=== PATIENT | female | born 1995 | race Hispanic/Latino ===

== ENCOUNTER 2019-11-17 21:41 | Emergency (ER) | payer SELFPAY ==
[~2019-11-17] VITALS: Ht 160 cm; Wt 90.7 kg
--- NOTE | 2019-11-17 22:15 | Emergency Department Note ---
History of Present Illnes History of Present Illness Chief Complaint: Hypertension History of Present Illness This is a 24 year old female PRESENTS WITH C/O ELEVATED BLOOD PRESSURE, STATES WAS AT WORK TODAY BEGAN TO HAVE HEADACHE AND WAS LIGHT HEADED, [facility] DOCTOR DID EKG AND CHECKED BLOOD PRESSURE AND HER BP WAS"VERY HIGH" WAS STARTED ON [place]. STATES HER HEART RATE WAS A LITTLE ELEVATED WELL, STATES CAME IN TONIGHT BECAUSE BP AT HOME WAS 148/114.. 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 Arrival Mode: Car Onset (how long ago): hour(s) (12) Location: HEAD Quality: HEADACHE, LIGHTHEADED Radiation: Reports non-radiation Severity: moderate Onset quality: sudden Duration (how long): hour(s) (12) Timing of current episode: intermittent Progression: waxing and waning Chronicity: new Context: Denies recent illness Relieving factors: none Exacerbating factors: none Associated symptoms: Reports denies other symptoms Treatments prior to arrival: other (STARTED ON [place] TODAY) Past Medical/Family History Physician Review I have reviewed the patient's past medical and family history. Any updates have been documented here. Past Medical History Recent Fever: No Clinical Suspicion of Infectio: No New/Unexplained Change in Ment: No Past Medical History: Hypertension Past Surgical History: None Social History Smoking Cessation: Never Smoker Alcohol Use: None Any Illegal Drug Use: No Physically hurt or threatened: No Family History Other family history HTN Review of Systems Review of Systems Constitutional: Reports no symptoms EENTM: Reports no symptoms Cardiovascular: Reports no symptoms Respiratory: Reports no symptoms Gastrointestinal: Reports no symptoms Genitourinary: Reports no symptoms Musculoskeletal: Reports no symptoms Integumentary: Reports no symptoms Neurological: Reports as per HPI Psychological: Reports no symptoms Endocrine: Reports no symptoms Hematological/Lymphatic: Reports no symptoms Physical Exam Related Data Allergies: Coded Allergies: No Known Allergies (Unverified , 11/17/19) Triage Vital Signs Vital Signs Date Time Temp Pulse Resp B/P (MAP) Pulse Ox O2 Delivery O2 Flow Rate FiO2 11/17/19 21:50 99.5 117 18 148/106 100 Room Air Vital signs reviewed: Yes Physical Exam CONSTITUTIONAL Constitutional: Present well-developed, Present well-nourished HENT HENT: Present normocephalic, Present atraumatic, Present oropharynx clear/moist, Present nose normal HENT L/R: Present left ext ear normal, Present right ext ear normal EYES Eyes: Reports PERRL, Reports conjunctivae normal NECK Neck: Present ROM normal PULMONARY Pulmonary: Present effort normal, Present breath sounds normal CARDIOVASCULAR Cardiovascular: Present regular rhythm, Present heart sounds normal, Present capillary refill normal, Present tachycardia (104) GASTROINTESTINAL Abdominal: Present soft, Present nontender, Present bowel sounds normal GENITOURINARY Genitourinary: Present exam deferred SKIN Skin: Present warm, Present dry MUSCULOSKELETAL Musculoskeletal: Present ROM normal NEUROLOGICAL Neurological: Present alert, Present oriented x 3, Present no gross motor or sensory deficits PSYCHOLOGICAL Psychological: Present mood/affect normal, Present judgement normal Results Laboratory Laboratory Laboratory Tests Test 11/17/19 22:03 Urine Color Yellow (YELLOW) Urine Clarity Clear (CLEAR) Urine pH 7.5 (5 - 7) Urine Specific [place] 1.015 (1.010-1.025) Urine Protein Negative (NEGATIVE) Urine Glucose (UA) Negative (NEGATIVE) Urine Ketones Negative (NEGATIVE) Urine Blood Negative (NEGATIVE) Urine Nitrite Negative (NEGATIVE) Urine Bilirubin Negative (NEGATIVE) Urine Urobilinogen 0.2 mg/dL (0.2 - 1) Urine Leukocyte Esterase Negative (NEGATIVE) Urine RBC 0-5 /HPF (0-5) Urine WBC 0-5 /HPF (0-5) Urine Epithelial Cells Few /LPF (NONE) Urine Bacteria Few /HPF (NONE) Urine Test Negative (NEGATIVE) Lab results reviewed: Yes Imaging Imaging results reviewed: Yes Impressions Procedure: [id number] CT/CT BRAIN WO Exam Date: 11/17/19 Exam Time: 2315 REPORT STATUS: Signed EXAMINATION: Head CT HISTORY: Headache, hypertension. COMPARISON: None. TECHNIQUE: Helical axial images of the head were obtained. Reformatted coronal and sagittal images from the axial data. Dose modulation, iterative reconstruction, and/or weight based adjustment of the mA/kV was utilized to reduce the radiation dose to as low as reasonably achievable. Image quality: Motion/streaking artifact limits the evaluation of the skull base and posterior cranial fossa. FINDINGS: Parenchyma: 1. No abnormal densities. 2. No mass or hemorrhage. No CT evidence of acute territorial vascular insult. Extra-axial spaces:No abnormal density. No extra-axial fluid collections Brain volume: Normal for age. Ventricles: No hydrocephalus or displacement. Arteries: No density suggestive of thrombus. Dural sinuses: No abnormal density. Foramen magnum: No mass, Chiari malformation, or basilar invagination. Sella: No obvious mass. Paranasal/mastoid sinuses: Imaged portions unremarkable. Skull/Scalp: No lytic or blastic lesions. No fractures. IMPRESSION: No abnormalities, particularly no intracranial bleed is seen. Signed by: Dr. Doreen Patino M.D. 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 physician Date: Nov 17, 2019 Time: 21:56 Rhythm: sinus tachycardia Rate: tachycardia BPM: 107 QRS axis: normal ST segments normal: Yes T waves normal: No (NONSPECIFIC CHANGES) Other findings: no other findings Clinical Impression: non-specific ECG Assessment & Plan Medical Decision Making MDM PT WITH ELEVATED BLOOD PRESSURE WITH HEADACHE AND LIGHT HEADED EKG, CT BRAIN ORDERED TO EVAL FOR ARRHYTHMIA, INTRACRANIAL ABNORMALITY Assessment & Plan Final Impression: (1) HTN (hypertension) Depart Disposition: HOME, SELF-CARE Last Vital Signs Date Time Temp Pulse Resp B/P (MAP) Pulse Ox O2 Delivery O2 Flow Rate FiO2 11/17/19 21:50 99.5 117 18 148/106 100 Room Air CARLOS KELLY MD Nov 17, 2019 22:15
[2019-11-17 22:35] LABS: BILIRUBIN,URINE NEGATIVE (NEGATIVE); CLARITY,URINE CLEAR (CLEAR); COLOR,URINE YELLOW (YELLOW); KETONES,URINE NEGATIVE (NEGATIVE); LEUKOCYTE ESTERASE ,URINE NEGATIVE (NEGATIVE); NITRITE,URINE NEGATIVE (NEGATIVE); PREGNANCY TEST, URINE NEGATIVE (NEGATIVE); PROTEIN,URINE DIPSTICK NEGATIVE (NEGATIVE); URINE UROBILINOGEN 0.2 mg/dL (0.2 - 1)
[2019-11-17 22:42] LABS: BACTERIA,URINE FEW /HPF; EPITHELIAL CELLS,URINE FEW /LPF; RBC,URINE 0-5 /HPF (0-5); WBC,URINE (MAN) 0-5 /HPF (0-5)
--- NOTE | 2019-11-17 23:38 | Diagnostic Imaging Report ---
EXAMINATION: Head CT HISTORY: Headache, hypertension. COMPARISON: None. TECHNIQUE: Helical axial images of the head were obtained. Reformatted coronal and sagittal images from the axial data. Dose modulation, iterative reconstruction, and/or weight based adjustment of the mA/kV was utilized to reduce the radiation dose to as low as reasonably achievable. Image quality: Motion/streaking artifact limits the evaluation of the skull base and posterior cranial fossa. FINDINGS: Parenchyma: 1. No abnormal densities. 2. No mass or hemorrhage. No CT evidence of acute territorial vascular insult. Extra-axial spaces:No abnormal density. No extra-axial fluid collections Brain volume: Normal for age. Ventricles: No hydrocephalus or displacement. Arteries: No density suggestive of thrombus. Dural sinuses: No abnormal density. Foramen magnum: No mass, Chiari malformation, or basilar invagination. Sella: No obvious mass. Paranasal/mastoid sinuses: Imaged portions unremarkable. Skull/Scalp: No lytic or blastic lesions. No fractures. IMPRESSION: No abnormalities, particularly no intracranial bleed is seen. Signed by: Dr. Doreen Saldana M.D. on 11/17/2019 11:34 PM
[2019-11-18 00:28] VITALS: BP 138/104
== END 2019-11-18 00:37 | disposition home or self-care (01) ==
LOC: ER 22:03
DX: I10 Essential (primary) hypertension (principal); R51 Headache; R42 Dizziness and giddiness
CPT/HCPCS: 70450; 81001; 81025; 93005; 99283

== ENCOUNTER 2019-11-22 13:40 | Emergency (ER) | payer SELFPAY ==
[~2019-11-22] VITALS: Ht 160 cm; Wt 90.7 kg
--- OUTSIDE RECORDS SUMMARY | 2019-11-22 14:05 | XMS REPORT | Continuity of Care Document ---
Author Author [facility] t Organization [facility] Address [address] [place] [address] Phone Unavailable Care Team Providers Care Wire Twister Name Role Phone NO, PCP PCP Unavailable Niesha KELLY Attphys Unavailable Problems Condition Name Condition Details Condition Category Status Onset Date Resolution Date Last Treatment Date Treating Clinician Comments Source Hypertension Problem Active [facility] Allergies, Adverse Reactions, Alerts This patient has no known allergies or adverse reactions. Social History Social Habit Start Date Stop Date Quantity Comments Source Sex Assigned At 1995 00:00:00 1995 00:00:00 Female [facility] Medications This patient has no known medications. Vital Signs Vital Name Observation Time Observation Value Comments Source Body Temperature 2019-11-18 00:28:00 98.9 [degF] [facility] Weight 2019-11-17 21:50:00 200 [lb_av] [facility] BMI (Body Mass Index) 2019-11-17 21:50:00 35.4 kg/m2 [facility] Procedures Procedure Date / Time Performed Performing Clinician [facility] e Computed tomography of brain without radiopaque contrast 2019-10 00:00:00 [facility] Plan of Care Planned Activity Planned Date Details Comments Source Instructions Hypertension [facility] Encounters Start Date/Time End Date/Time Encounter Type Admission Type Attendi RUST Care Department Encounter ID Source 2019-11-17 22:03:00 2019-11-18 00:37:00 Departed Emergency Room 1 CARLOS KELLY [facility] [id number] I [facility] Results Test Description Test Time Test Comments Results Result Comments Source CT BRAIN WO 2019-11-17 23:31:00 [place] [id number] [place] [address] Patient Name: BALA CONTRERAS MR #: [id number] : 1995 Age/Sex: 24/F Req #: [id number] Adm Physician: Ordered by: CARLOS KELLY MD Report #: [id number] Location: ER Room/Bed: Procedure: [id number] CT/CT BRAIN WO Exam Date: 11/17/19 Exam Time: 2314 REPORT STATUS: Signed EXAMINATION: Head CT HISTORY: Headache, hypertension. COMPARISON: None. TECHNIQUE: Helical axial images of the head were obtained. Reformatted coronal and sagittal images from the axial data. Dose modulation, iterative reconstruction, and/or weight based adjustment of the mA/kV was utilized to reduce the radiation dose to as low as reasonably achievable. Image quality: Motion/streaking artifact limits the evaluation of the skull base and posterior cranial fossa. FINDINGS: Parenchyma: 1. No abnormal densities. 2. No mass or hemorrhage. No CT evidence of acute territorial vascular insult. Extra-axial spaces:No abnormal density. No extra-axial fluid collections Brain volume: Normal for age. Ventricles: No hydrocephalus or displacement. Arteries: No density suggestive of thrombus. Dural sinuses: No abnormal density. Foramen magnum: No mass, Chiari malformation, or basilar invagination. Sella: No obvious mass. Paranasal/mastoid sinuses: Imaged portions unremarkable. Skull/Scalp: No lytic or blastic lesions. No fractures. IMPRESSION: No abnormalities, particularly no intracranial bleed is seen. Signed by: Dr. Miriam Saldana M.D. on 11/17/2019 11:34 PM Dictated By: MIRIAM SALDANA MD 33 Transcribed By: KEITH on 11/17/192333 COPY TO: CARLOS KELLY MD Urine color determination 2019-11-17 22:03:00 Test Item Urine Color (test code = 5778-6) YELLOW YELLOW [facility] [id number] 22:03:00* Test Item Value Reference Range Interpretation Comments Urine Clarity (test code = 48561-3) [facility]AR [facility] Test strip 2019-11-17 22:03:00* Test Item Value Reference Range Interpretation Comments Urine Specific [place] (test code = 5811-5) 1.015 1.010-1.02 5 [facility] by automated test [id number] 22:03:00* Test Item Value Reference Range Interpretation Comments Urine pH (test code = 92953-4) 7.5 5-7 [facility] leukocyte esterase detection by [id number] 22:03:00* Test Item Value Reference Range Interpretation Comments Urine Leukocyte Esterase (test code = 5799-2) NEGATIVE NEGATIVE [facility] nitrite [id number] 22:03:00* Test Item Value Reference Range Interpretation Comments Urine Nitrite (test code = 63954-1) NEGATIVE NEGATIVE [facility] protein measurement by test strip (mass/volume)2019-11-17 22:03:00* Test Item Value Reference Range Interpretation Comments Urine Protein (test code = 5804-0) NEGATIVE NEGATIVE [facility] glucose [id number] 22:03:00* Test Item Value Reference Range Interpretation Comments Urine Glucose (UA) (test code = 2349-9) NEGATIVE NEGATIVE [facility] ketones detection by automated test [id number] 22:03:00* Test Item Value Reference Range Interpretation Comments Urine Ketones (test code = 23170-2) NEGATIVE NEGATIVE [facility] urobilinogen measurement by test strip (mass/volume)2019-11-17 22:03:00* Test Item Value Reference Range Interpretation Comments Urine Urobilinogen (test code = 82135-4) 0.2 0.2-1 [facility] total bilirubin measurement (mass/volume)2019-11-17 22:03:00* Test Item Value Reference Range Interpretation Comments Urine Bilirubin (test code = 1978-6) NEGATIVE NEGATIVE [facility] erythrocytes [id number] 22:03:00* Test Item Value Reference Range Interpretation Comments Urine Blood (test code = 94173-1) NEGATIVE NEGATIVE [facility] sediment leukocyte count by microscopy (number/high power field)2019-11-17 22:03:00* Test Item Value Reference Range Interpretation Comments Urine WBC (test code = 5821-4) 0-5 0-5 [facility] detection in urine sediment by light [id number] 22:03:00* Test Item Value Reference Range Interpretation Comments Urine RBC (test code = 01116-6) 0-5 0-5 [facility] detection in urine sediment by light [id number] 22:03:00* Test Item Value Reference Range Interpretation Comments Urine Bacteria (test code = 30066-2) FEW NONE [facility]pithelial cells detection in urine sediment by light [id number] 22:03:00* Test Item Value Reference Range Interpretation Comments Urine Epithelial Cells (test code = 35426-2) FEW NONE [facility] human chorionic gonadotropin (hCG) [id number] 22:03:00* Test Item Value Reference Range Interpretation Comments Urine Test (test code = 2106-3) NEGATIVE NEGATIVE [facility]
--- NOTE | 2019-11-22 14:14 | Emergency Department Note ---
History of Present Illnes History of Present Illness Chief Complaint: COVID PUI History of Present Illness This is a 24 year old female who presents for palpitations. Per ems patient presents to the ER due to shortness of breath. Patient was recently diagnosed with COVID 19 3 days ago, but states that she was asymptomatic. She was pacing in her home and felt she was breathing fast, SoB, hand tingling, and palpitations. 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 Any updates have been documented here. Past Medical History Recent Fever: No Clinical Suspicion of Infectio: No New/Unexplained Change in Ment: No Past Medical History: Hypertension Past Surgical History: None Review of Systems Review of Systems Constitutional: Reports no symptoms, Reports as per HPI EENTM: Reports no symptoms Cardiovascular: Reports no symptoms Respiratory: Reports no symptoms, Reports dyspnea Gastrointestinal: Reports no symptoms Genitourinary: Reports no symptoms Musculoskeletal: Reports no symptoms Integumentary: Reports no symptoms Neurological: Reports no symptoms, Reports tingling Psychological: Reports no symptoms Endocrine: Reports no symptoms Hematological/Lymphatic: Reports no symptoms Review of other systems: All other systems negative Physical Exam Related Data Allergies: Coded Allergies: No Known Allergies (Unverified , 11/17/19) Triage Vital Signs Vital Signs Date Time Temp Pulse Resp B/P (MAP) Pulse Ox O2 Delivery O2 Flow Rate FiO2 11/22/19 14:02 98.7 99 18 123/90 97 Room Air Vital signs reviewed: Yes Physical Exam CONSTITUTIONAL Constitutional: Present well-developed, Present well-nourished HENT HENT: Present normocephalic, Present atraumatic, Present oropharynx clear/moist, Present nose normal HENT L/R: Present left ext ear normal, Present right ext ear normal EYES Eyes: Reports PERRL, Reports conjunctivae normal NECK Neck: Present ROM normal PULMONARY Pulmonary: Present effort normal, Present breath sounds normal CARDIOVASCULAR Cardiovascular: Present regular rhythm, Present heart sounds normal, Present capillary refill normal, Present normal rate GASTROINTESTINAL Abdominal: Present soft, Present nontender, Present bowel sounds normal GENITOURINARY Genitourinary: Present exam deferred SKIN Skin: Present warm, Present dry MUSCULOSKELETAL Musculoskeletal: Present ROM normal NEUROLOGICAL Neurological: Present alert, Present oriented x 3, Present no gross motor or sensory deficits PSYCHOLOGICAL Psychological: Present mood/affect normal, Present judgement normal Results Laboratory Lab results reviewed: Yes Imaging Imaging results reviewed: Yes Diagnostics Tests Diagnostic test(s) reviewed: Yes Procedures 12 Lead ECG Interpretation ECG Interpretation : ECG: ECG 1 Dogger: Interpreted by ED physician Date: Nov 22, 2019 Prior ECG tracings: reviewed Rhythm: sinus rhythm Rate: normal QRS axis: normal ST segments normal: Yes T waves normal: Yes Assessment & Plan Medical Decision Making MDM 24-year-old female recently diagnosed with Mariee virus presenting for shortness of breath, palpitations, and tingling. Symptoms have largely resolved. This happened before. Exam shows an overall well-appearing patient in no acute distress, vital signs stable, within acceptable limits. Initial differential significant for thyroid and her maladies versus coronavirus versus anxiety versus arrhythmia. EKG is well-appearing, laboratory workup is largely unremarkable. Patient remains a symptomatic. Doubt emergent process at this time. I discussed results patient as well as expected disease time course and management. They will follow up with their primary care provider or return to the emergency department for new or worsening symptoms. Patient's appropriate for discharge. Reassessment Reassessment time: 16:00 Assessment & Plan Final Impression: (1) Palpitations Depart Disposition: HOME, SELF-CARE Last Vital Signs Date Time Temp Pulse Resp B/P (MAP) Pulse Ox O2 Delivery O2 Flow Rate FiO2 11/22/19 14:02 98.7 99 18 123/90 97 Room Air Deepak Gutierrez MD Nov 22, 2019 14:14
== END 2019-11-22 15:25 | disposition home or self-care (01) ==
LOC: ER 14:02
DX: R00.2 Palpitations (principal); R06.02 Shortness of breath; I10 Essential (primary) hypertension
CPT/HCPCS: 93005; 99283

== ENCOUNTER 2020-04-16 19:07 | Emergency (ER) | payer SELFPAY ==
[~2020-04-16] VITALS: Ht 160 cm; Wt 90.7 kg
== END 2020-04-16 20:10 | disposition home or self-care (01) ==
LOC: ER 19:21
DX: R20.2 Paresthesia of skin (principal); R20.0 Anesthesia of skin; I10 Essential (primary) hypertension; F41.9 Anxiety disorder, unspecified
CPT/HCPCS: 70450; 99283